=== PATIENT | female | born 1985 | race Caucasian/White ===

== ENCOUNTER 2018-10-26 10:03 | Inpatient (IN) | payer BC, MEDICAID ==
[2018-10-26] MEDS ORDERED: Lidocaine 1% 50 ML MDV INJECT PRN (11:58)
[2018-10-26] MEDS ORDERED: Sodium Chloride 0.9% 10 ML Syringe FLUSH PRN (11:58)
[2018-10-26] MEDS ORDERED: Tranexamic Acid 1,000 MG in Sodium Chloride 0.9% 100 ML IV PRN (11:58)
[2018-10-26] MEDS ORDERED: Methylergonovine 0.2 MG/1 ML Amp IM PRN (11:58)
[2018-10-26] MEDS ORDERED: Sodium Chloride 0.9% 2.5 ML Syringe FLUSH PRN (11:58)
[2018-10-26] MEDS ORDERED: Misoprostol 200 MCG Tab PO PRN (11:58)
[2018-10-26] MEDS ORDERED: Carboprost Tromethamine 250 MCG/1 ML Amp IM PRN (11:58)
[2018-10-26] MEDS ORDERED: Sodium Chloride 0.9% 10 ML SDV IV PRN (11:58)
[2018-10-26] MEDS ORDERED: Water For Irrigation,Sterile 1,000 ML Container IRR PRN (11:58)
[2018-10-26] MEDS ORDERED: Nalbuphine 10 MG/1 ML Vial IVPUSH PRN (11:58)
[2018-10-26] MEDS ORDERED: Oxytocin/0.9 % Sodium Chloride 30 UNIT/500 ML BAG IV SCH (12:00)
[2018-10-26] MEDS ORDERED: Ampicillin 2 GM in Sodium Chloride 0.9% 100 ML IV ONE (12:30)
[2018-10-26] MEDS: Lactated Ringers 1,000 ML IV SCH ×2 (12:45→15:07)
--- NOTE | 2018-10-26 12:57 | PCM.HP ---
<Olivier Gaxiolaher R - Last Filed: 10/26/18 12:52> H&P History of Present Illness - General Date of Service: 10/26/18 Admit Problem/Dx: Admission Diagnosis/Problem Admission Diagnosis/Problem Source of Information: Patient History Limitations: Reports: No Limitations - History of Present Illness Onset of Symptoms: Reports: Gradual Symptom Onset Date: 10/25/18 Location: Reports: Abdomen Severity: Moderate Associated Symptoms: Reports: No Other Symptoms - Related Data Allergies/Adverse Reactions: Allergies Allergy/AdvReac Type Severity Reaction Status Date / Time latex Allergy Itching Verified 10/24/18 14:48 Home Medications: Home Meds Vits96/Iron Fum/Folic [ Tablet] 1 each PO DAILY 10/24/18 [ History] H&P Review of Systems - Review of Systems: Review Of Systems: See Below General: Reports: No Symptoms HEENT: Reports: No Symptoms Pulmonary: Reports: No Symptoms Cardiovascular: Reports: No Symptoms Gastrointestinal: Reports: No Symptoms Genitourinary: Reports: No Symptoms Musculoskeletal: Reports: No Symptoms Skin: Reports: No Symptoms Psychiatric: Reports: No Symptoms Neurological: Reports: No Symptoms Hematologic/Lymphatic: Reports: No Symptoms Immunologic: Reports: No Symptoms Exam - Exam Exam: See Below - Exam General: Alert, Oriented, Cooperative Lungs: Normal Respiratory Effort GI/Abdominal Exam: Soft, Non-Tender Rectal (Female) Exam: Deferred Back Exam: Full Range of Motion Extremities: Normal Range of Motion, Normal Capillary Refill Skin: Warm, Dry, Intact Neurological: Reflexes Equal Bilateral Neuro Extensive - Mental Status: Alert, Oriented x3, Normal Mood/Affect, Normal Cognition, Memory Intact Neuro Extensive - Motor, Sensory, Reflexes: Normal Gait Psychiatric: Alert, Normal Affect, Normal Mood - Problem List (1) Supervision of normal IUP (intrauterine ) in primigravida SNOMED Code(s): 13042399, [id number], [id number], [id number] ICD Code: Z34.00 - ENCNTR FOR SUPRVSN OF NORMAL FIRST , UNSP TRIMESTER Status: Acute Priority: High Qualifiers: Trimester: third trimester Qualified Code(s): Z34.03 - Encounter for supervision of normal first , third trimester Problem List Initiated/Reviewed/Updated: Yes Orders Last 24hrs: Active Orders 24 hr Category Date Time Status Patient Status [ADT] Routine ADT 10/26/18 11:59 Active Heart Tones [RC] CONTINUOUS Care 10/26/18 11:59 Active Non Stress Test [RC] PER UNIT ROUTINE Care 10/26/18 10:10 Active May Shower [RC] ASDIRECTED Care 10/26/18 11:59 Active Notify Provider [RC] PRN Care 10/26/18 11:59 Active Up ad Sarahi [RC] ASDIRECTED Care 10/26/18 10:10 Active Vaginal Exam [RC] Click to Edit Care 10/26/18 10:10 Active Vital Signs [RC] PER UNIT ROUTINE Care 10/26/18 10:10 Active CBC W/O DIFF,HEMOGRAM [HEME] Routine Lab 10/26/18 12:40 Received TYPE AND SCREEN [BBK] Routine Lab 10/26/18 12:40 Received Ampicillin 1 gm Med 10/26/18 16:30 Active Sodium Chloride 0.9% [Normal Saline] 50 ml IV Q4H Ampicillin 2 gm Med 10/26/18 12:30 Active Sodium Chloride 0.9% [Normal Saline] 100 ml IV ONETIME Carboprost Tromethamine [Hemabate DS] Med 10/26/18 11:58 Active 250 mcg IM ASDIRECTED PRN Lactated Ringers [Ringers, Lactated] 1,000 ml Med 10/26/18 12:00 Active IV ASDIRECTED Lidocaine 1% [Xylocaine 1%] Med 10/26/18 11:58 Active 50 ml INJECT ONETIME PRN Methylergonovine [Methergine] Med 10/26/18 11:58 Active 0.2 mg IM ASDIRECTED PRN Nalbuphine [Nubain] Med 10/26/18 11:58 Active 10 mg IVPUSH Q1H PRN Oxytocin/0.9 % Sodium Chloride [Oxytocin 30 Unit/500 ML Med 10/26/18 12:00 Active -NS] 30 unit in 500 ml IV TITRATE Sodium Chloride 0.9% [Normal Saline] Med 10/26/18 11:58 Active 10 ml IV ASDIRECTED PRN Sodium Chloride 0.9% [Saline Flush] Med 10/26/18 11:58 Active 10 ml FLUSH ASDIRECTED PRN Sodium Chloride 0.9% [Saline Flush] Med 10/26/18 11:58 Active 2.5 ml FLUSH ASDIRECTED PRN Tranexamic Acid [Cyklokapron] 1,000 mg Med 10/26/18 11:58 Active Sodium Chloride 0.9% [Normal Saline] 100 ml IV ONETIME Water For Irrigation,Sterile [Sterile Water for Med 10/26/18 11:58 Active Irrigation] 1,000 ml IRR ASDIRECTED PRN miSOPROStol [Cytotec] Med 10/26/18 11:58 Active 200 mcg PO ONETIME PRN Scalp Electrode [WOMSER] Per Unit Routine Oth 10/26/18 11:59 Ordered Peripheral IV Insertion Adult [OM.PC] Routine Oth 10/26/18 11:59 Ordered Resuscitation Status Routine Resus Stat 10/26/18 11:56 Ordered Medication Orders Carboprost Tromethamine (Hemabate Ds) 250 mcg IM ASDIRECTED PRN PRN Reason: Post Hemorrhage Tranexamic Acid 1,000 mg/ (Sodium Chloride) 110 mls @ 660 mls/hr IV ONETIME PRN PRN Reason: Bleeding Lactated Ringer's (Ringers, Lactated) 1,000 mls @ 150 mls/hr IV ASDIRECTED [facility] Last Admin: 10/26/18 12:45 Dose: 150 mls/hr Oxytocin/Sodium Chloride (Oxytocin 30 Unit/500 Ml-Ns) 30 unit in 500 mls @ 999 mls/hr IV TITRATE [facility] Ampicillin Sodium 2 gm/ Sodium (Chloride) 100 mls @ 200 mls/hr IV ONETIME ONE Stop: 10/26/18 12:59 Last Admin: 10/26/18 12:48 Dose: 200 mls/hr Ampicillin Sodium 1 gm/ Sodium (Chloride) 50 mls @ 100 mls/hr IV Q4H [facility] Lidocaine HCl (Xylocaine 1%) 50 ml INJECT ONETIME PRN PRN Reason: Laceration repair Methylergonovine Maleate (Methergine) 0.2 mg IM ASDIRECTED PRN PRN Reason: Post Hemorrhage Misoprostol (Cytotec) 200 mcg PO ONETIME PRN PRN Reason: Post Hemorrhage Nalbuphine HCl (Nubain) 10 mg IVPUSH Q1H PRN PRN Reason: Pain (severe 7-10) Sodium Chloride (Saline Flush) 10 ml FLUSH ASDIRECTED PRN PRN Reason: Keep Vein Open Sodium Chloride (Saline Flush) 2.5 ml FLUSH ASDIRECTED PRN PRN Reason: Keep Vein Open Sodium Chloride (Normal Saline) 10 ml IV ASDIRECTED PRN PRN Reason: IV Use Sterile Water (Sterile Water For Irrigation) 1,000 ml IRR ASDIRECTED PRN PRN Reason: delivery Assessment/Plan Comment:: Admit: A: presenting at 38 1/7 weeks, SVE 3-4/100%/0, A+, RI, GBS+, VSS, regular uterine contractions q 3-5 minutes, cat 1 tracing, patient has multiple copies of her plan available P: Pain relief PRN per patient request, Anticipate JF, Dr. Lawson updated <Lisa Ken - Last Filed: 11/09/18 11:17> H&P History of Present Illness - General Admit Problem/Dx: Admission Diagnosis/Problem Admission Diagnosis/Problem Exam - Vital Signs Vital Signs: Last Vital Signs Temp 36.6 C 10/29/18 07:00 Pulse 86 10/29/18 07:00 Resp 16 10/29/18 07:00 BP 118/78 10/29/18 07:00 Pulse Ox 99 10/29/18 07:00 - Patient Data Result Diagrams: 10/28/18 05:03 Assessment/Plan Comment:: I have read and agree with the note and poc.
[2018-10-26] MEDS ORDERED: fentaNYL 100 MCG/2 ML SDV ONE (15:39)
[2018-10-26] MEDS ORDERED: Ropivacaine HCl/PF 100 ML ONE (15:39)
--- NOTE | 2018-10-26 15:58 | PCM.PREANE ---
Preanesthetic Assessment - Anesthesia/Transfusion/Family Hx Anesthesia History: No Prior Anesthesia Family History of Anesthesia Reaction: No - Review of Systems General: No Symptoms Pulmonary: No Symptoms Cardiovascular: No Symptoms Gastrointestinal: No Symptoms Neurological: No Symptoms - Physical Assessment ASA Class: 1 Mental Status: Alert & Oriented x3 Dentition: Reports: Normal Dentition - Lab Values: Laboratory Last Values WBC 19.30 K/uL (4.0-11.0) H 10/26/18 12:40 RBC 3.70 M/uL (4.30-5.90) L 10/26/18 12:40 Hgb 10.5 g/dL (12.0-16.0) L 10/26/18 12:40 Hct 31.3 % (36.0-46.0) L 10/26/18 12:40 MCV 84.6 fL (80.0-98.0) 10/26/18 12:40 MCH 28.4 pg (27.0-32.0) 10/26/18 12:40 MCHC 33.5 g/dL (31.0-37.0) 10/26/18 12:40 RDW Std Deviation 42.1 fl (28.0-62.0) 10/26/18 12:40 RDW Coeff of Lorna 14 % (11.0-15.0) 10/26/18 12:40 Plt Count 214 K/uL (150-400) 10/26/18 12:40 MPV 11.60 fL (7.40-12.00) 10/26/18 12:40 Nucleated RBC % 0.0 /100WBC 10/26/18 12:40 Nucleated RBCs # 0 K/uL 10/26/18 12:40 Blood Type A POSITIVE 10/26/18 12:40 Antibody Screen NEGATIVE 10/26/18 12:40 - Allergies Allergies/Adverse Reactions: Allergies Allergy/AdvReac Type Severity Reaction Status Date / Time latex Allergy Itching Verified 10/24/18 14:48 - Acknowledgements Anesthesia Type Planned: Epidural Pt an Appropriate Candidate for the Planned Anesthesia: Yes Alternatives and Risks of Anesthesia Discussed w Pt/Guardian: Yes Pt/Guardian Understands and Agrees with Anesthesia Plan: Yes PreAnesthesia Questionnaire - HOME MEDS Home Medications: Home Meds Vits96/Iron Fum/Folic [ Tablet] 1 each PO DAILY 10/24/18 [ History] - CURRENT (IN HOUSE) MEDS Current Meds: Current Medications Carboprost Tromethamine (Hemabate Ds) 250 mcg IM ASDIRECTED PRN PRN Reason: Post Hemorrhage Tranexamic Acid 1,000 mg/ (Sodium Chloride) 110 mls @ 660 mls/hr IV ONETIME PRN PRN Reason: Bleeding Lactated Ringer's (Ringers, Lactated) 1,000 mls @ 150 mls/hr IV ASDIRECTED [facility] Last Admin: 10/26/18 15:07 Dose: 999 mls/hr Oxytocin/Sodium Chloride (Oxytocin 30 Unit/500 Ml-Ns) 30 unit in 500 mls @ 999 mls/hr IV TITRATE [facility] Ampicillin Sodium 1 gm/ Sodium (Chloride) 50 mls @ 100 mls/hr IV Q4H [facility] Lidocaine HCl (Xylocaine 1%) 50 ml INJECT ONETIME PRN PRN Reason: Laceration repair Methylergonovine Maleate (Methergine) 0.2 mg IM ASDIRECTED PRN PRN Reason: Post Hemorrhage Misoprostol (Cytotec) 200 mcg PO ONETIME PRN PRN Reason: Post Hemorrhage Nalbuphine HCl (Nubain) 10 mg IVPUSH Q1H PRN PRN Reason: Pain (severe 7-10) Last Admin: 10/26/18 13:40 Dose: 10 mg Sodium Chloride (Saline Flush) 10 ml FLUSH ASDIRECTED PRN PRN Reason: Keep Vein Open Sodium Chloride (Saline Flush) 2.5 ml FLUSH ASDIRECTED PRN PRN Reason: Keep Vein Open Sodium Chloride (Normal Saline) 10 ml IV ASDIRECTED PRN PRN Reason: IV Use Sterile Water (Sterile Water For Irrigation) 1,000 ml IRR ASDIRECTED PRN PRN Reason: delivery Discontinued Medications Fentanyl (Sublimaze) Confirm Administered Dose 100 mcg .ROUTE .STK-MED ONE Stop: 10/26/18 15:40 Ampicillin Sodium 2 gm/ Sodium (Chloride) 100 mls @ 200 mls/hr IV ONETIME ONE Stop: 10/26/18 12:59 Last Admin: 10/26/18 12:48 Dose: 200 mls/hr Ropivacaine (Naropin 0.2%) Confirm Administered Dose 100 mls @ as directed .ROUTE .STK-MED ONE Stop: 10/26/18 15:40
--- NOTE | 2018-10-26 16:02 | PCM.PRNOTE ---
- Free Text/Narrative Note: Anes Note 1542 Patient requests epidural for L&D. Sitting position. Level L2-L3, midline approach. Sterle technique. Chloraprep scrube to lumbar area.Sterile fenestrated drape applied. Epidural space easily achieved single attempt with ease. YANIRA at 5 cm, cathreaded 4 cm. Secured at skin at 9 cm..Sterile clear adhseive dressing applied. 1551 Test 3 cc 1.5% lido ith epi neg. Loading does 1554 10 cc 0.2 ropivicaine with 1 mcg/cc fentanyl in slow divided doses. 1600 pump started. same solution at 8 cc hr with 6 cc q 20 min prn blous. Patient reports excellent analgesia Time with patient [id number] Nitesh Frederick SPLUNK CONSULTANT
[2018-10-26] MEDS: Ampicillin 1 GM in Sodium Chloride 0.9% 50 ML IV SCH ×2 (16:44→21:17)
[2018-10-27] MEDS ORDERED: Ondansetron 4 MG/2 ML SDV ONE (00:01)
[2018-10-27] MEDS ORDERED: Ropivacaine HCl/PF 100 ML ONE (00:11)
[2018-10-27] MEDS ORDERED: fentaNYL 100 MCG/2 ML SDV ONE (00:11)
[2018-10-27] MEDS: Ampicillin 1 GM in Sodium Chloride 0.9% 50 ML IV SCH (00:13)
[2018-10-27] MEDS: Lactated Ringers 1,000 ML IV SCH (00:14)
[2018-10-27] MEDS ORDERED: Bupivacaine 0.5% 10 ML SDV ONE (00:21)
--- NOTE | 2018-10-27 00:27 | PCM.PRNOTE ---
- Free Text/Narrative Note: Anes Note Epidural bag changed. A new bag of 100 cc 0.2% ropivicaine with 1 mcg/cc fentanyl added was placed. Rate is 8 cc/hr with 6 cc q 20 min prn bolus. A 5 cc top up of 0.25% bupivicaine was given forslight discomfort in r hip area. Time with patient [id number] Nitesh Frederick CRNA
[2018-10-27] MEDS ORDERED: Benzocaine/Menthol 20%-0.5% Spray 78 GM Cannister TOP PRN (01:32)
[2018-10-27] MEDS ORDERED: oxyCODONE 5 MG Tab PO PRN (01:32)
[2018-10-27] MEDS ORDERED: Acetaminophen 500 MG Tab PO PRN ×2 (01:32)
[2018-10-27] MEDS ORDERED: Lanolin 100% Cream 7 GM Tube TOP PRN (01:32)
[2018-10-27] MEDS ORDERED: Bisacodyl 10 MG Supp RECTAL PRN (01:32)
[2018-10-27] MEDS ORDERED: Witch Hazel Medicated Pads 40/Jar TOP PRN (01:32)
[2018-10-27] MEDS ORDERED: Ibuprofen 400 MG Tab PO PRN (01:32)
--- NOTE | 2018-10-27 04:02 | OR ---
SURGEON: Zachary Lawson MD DATE OF PROCEDURE: Ms. Shabazz is 33 years old primigravida. She is followed in our clinic jointly by myself and nurse cmm operator. The patient had no complication. Her GBS status was positive. The patient is admitted in active labor. At the time of admission, she was 3 to 4 cm with bulging bag of water. She had 2 doses of antibiotic infused in her body and then at 5 cm, I did an artificial rupture of the membrane and light meconium is noted at the time of the rupture. The patient had epidural anesthesia for labor analgesia. She has continued to progress without any problem, without any stimulation. She became complete, complete, and she was able to accomplish normal spontaneous vaginal delivery over intact perineum. Fetus cried immediately. score reported to be 8 and 9. The weight is not available. The placenta delivered spontaneous, complete, and intact without any problem. One nuchal cord is noted and estimated blood loss is 250 to 300 mL. There was no labial, perineal, or vaginal laceration. heart rate was category 1 through the entire process of labor. There was no complication in the labor and in this patient. MILAN / HEATHER /[id number]
[2018-10-27] MEDS: Docusate Sodium 100 MG Cap PO PRN (07:44)
[2018-10-27] MEDS: Ibuprofen 800 MG Tab PO PRN ×3 (07:44→22:12)
--- NOTE | 2018-10-27 08:33 | PCM48HPAN ---
Post Anesthesia Note - EVALUATION WITHIN 48HRS OF ANESTHETIC Vital Signs in Normal Range: Yes Patient Participated in Evaluation: Yes Respiratory Function Stable: Yes Airway Patent: Yes Cardiovascular Function Stable: Yes Hydration Status Stable: Yes Pain Control Satisfactory: Yes Nausea and Vomiting Control Satisfactory: Yes Mental Status Recovered: Yes Pulse Rate: 92 SaO2: 96 Resp Rate: 16 Blood Pressure: 109/71
--- NOTE | 2018-10-28 10:21 | PCM.DCSUM1 ---
Discharge Summary - Hospital Course Diagnosis: Stroke: No - Discharge Data Discharge Date: 10/28/18 Discharge Disposition: Home, Self-Care 01 Condition: Good - Patient Instructions Diet: Usual Diet as Tolerated Activity: As Tolerated Showering/Bathing: May Shower - Discharge Plan Home Medications: Home Meds Vits96/Iron Fum/Folic [ Tablet] 1 each PO DAILY 10/24/18 [ History] Referrals: [facility] [Outside] Lisa Ken CNM [Mid-] - 12/07/18 8:30 am - Discharge Summary/Plan Comment DC Time >30 min.: Yes - General Info Date of Service: 10/28/18 Functional Status: Reports: Pain Controlled - Review of Systems General: Reports: No Symptoms HEENT: Reports: No Symptoms Pulmonary: Reports: No Symptoms Cardiovascular: Reports: No Symptoms Gastrointestinal: Reports: No Symptoms Genitourinary: Reports: No Symptoms Musculoskeletal: Reports: No Symptoms Skin: Reports: No Symptoms Neurological: Reports: No Symptoms Psychiatric: Reports: No Symptoms - Patient Data Vitals - Most Recent: Last Vital Signs Temp 37.2 C 10/28/18 07:29 Pulse 76 10/28/18 07:29 Resp 16 10/28/18 07:29 BP 98/62 10/28/18 07:29 Pulse Ox 99 10/28/18 07:29 Weight - Most Recent: 61.235 kg Lab Results - Last 24 hrs: Laboratory Results - last 24 hr 10/28/18 Range/Units 05:03 Hgb 9.2 L (12.0-16.0) g/dL Hct 28.4 L (36.0-46.0) % Med Orders - Current: Current Medications Acetaminophen (Tylenol Extra Strength) 500 mg PO Q4H PRN PRN Reason: Pain Acetaminophen (Tylenol Extra Strength) 1,000 mg PO Q4H PRN PRN Reason: Pain Benzocaine/Menthol (Dermoplast Pain Relief 20%-0.5% [place]) 78 gm TOP ASDIRECTED PRN PRN Reason: Perineal Comfort Measure Bisacodyl (Dulcolax) 10 mg RECTAL ONETIME PRN PRN Reason: Constipation Carboprost Tromethamine (Hemabate Ds) 250 mcg IM ASDIRECTED PRN PRN Reason: Post Hemorrhage Docusate Sodium (Colace) 100 mg PO BID PRN PRN Reason: Constipation Last Admin: 10/27/18 07:44 Dose: 100 mg Emollient Ointment (Lansinoh Hpa) 0 gm TOP ASDIRECTED PRN PRN Reason: Sore Nipples Last Admin: 10/27/18 20:02 Dose: 1 tube Tranexamic Acid 1,000 mg/ (Sodium Chloride) 110 mls @ 660 mls/hr IV ONETIME PRN PRN Reason: Bleeding Lactated Ringer's (Ringers, Lactated) 1,000 mls @ 150 mls/hr IV ASDIRECTED [facility] Last Admin: 10/27/18 00:14 Dose: 150 mls/hr Oxytocin/Sodium Chloride (Oxytocin 30 Unit/500 Ml-Ns) 30 unit in 500 mls @ 999 mls/hr IV TITRATE [facility] Ampicillin Sodium 1 gm/ Sodium (Chloride) 50 mls @ 100 mls/hr IV Q4H [facility] Last Admin: 10/27/18 00:13 Dose: 100 mls/hr Ibuprofen (Motrin) 400 mg PO Q4H PRN PRN Reason: Pain Ibuprofen (Motrin) 800 mg PO Q6H PRN PRN Reason: Pain Last Admin: 10/27/18 22:12 Dose: 800 mg Lidocaine HCl (Xylocaine 1%) 50 ml INJECT ONETIME PRN PRN Reason: Laceration repair Methylergonovine Maleate (Methergine) 0.2 mg IM ASDIRECTED PRN PRN Reason: Post Hemorrhage Misoprostol (Cytotec) 200 mcg PO ONETIME PRN PRN Reason: Post Hemorrhage Nalbuphine HCl (Nubain) 10 mg IVPUSH Q1H PRN PRN Reason: Pain (severe 7-10) Last Admin: 10/26/18 13:40 Dose: 10 mg Oxycodone HCl (Oxycodone) 5 mg PO Q2H PRN PRN Reason: Pain Sodium Chloride (Saline Flush) 10 ml FLUSH ASDIRECTED PRN PRN Reason: Keep Vein Open Sodium Chloride (Saline Flush) 2.5 ml FLUSH ASDIRECTED PRN PRN Reason: Keep Vein Open Sodium Chloride (Normal Saline) 10 ml IV ASDIRECTED PRN PRN Reason: IV Use Sterile Water (Sterile Water For Irrigation) 1,000 ml IRR ASDIRECTED PRN PRN Reason: delivery Witch Constance (Tucks) 1 pad TOP ASDIRECTED PRN PRN Reason: comfort care Discontinued Medications Bupivacaine HCl (Sensorcaine-Mpf 0.5%) Confirm Administered Dose 10 ml .ROUTE .STK-MED ONE Stop: 10/27/18 00:22 Fentanyl (Sublimaze) Confirm Administered Dose 100 mcg .ROUTE .STK-MED ONE Stop: 10/26/18 15:40 Fentanyl (Sublimaze) Confirm Administered Dose 100 mcg .ROUTE .STK-MED ONE Stop: 10/27/18 00:12 Ampicillin Sodium 2 gm/ Sodium (Chloride) 100 mls @ 200 mls/hr IV ONETIME ONE Stop: 10/26/18 12:59 Last Admin: 10/26/18 12:48 Dose: 200 mls/hr Ropivacaine (Naropin 0.2%) Confirm Administered Dose 100 mls @ as directed .ROUTE .STK-MED ONE Stop: 10/26/18 15:40 Ropivacaine (Naropin 0.2%) Confirm Administered Dose 100 mls @ as directed .ROUTE .STK-MED ONE Stop: 10/27/18 00:12 Ondansetron HCl (Zofran) Confirm Administered Dose 4 mg .ROUTE .STK-MED ONE Stop: 10/27/18 00:02 Last Admin: 10/27/18 00:14 Dose: 4 mg - Exam General: Reports: Alert, Oriented HEENT: Reports: Pupils Equal, Pupils Reactive, EOMI, Mucous Membr. Moist/[place] Neck: Reports: Supple Lungs: Reports: Clear to Auscultation, Normal Respiratory Effort Cardiovascular: Reports: Regular Rate, Regular Rhythm GI/Abdominal Exam: Normal Bowel Sounds, Soft, Non-Tender, No Organomegaly, No Distention, No Abnormal Bruit, No Mass, Pelvis Stable (Female) Exam: Normal External Exam, Normal Speculum Exam, Normal Bimanual Exam Rectal (Female) Exam: Normal Exam, Normal Rectal Tone Back Exam: Reports: Normal Inspection, Full Range of Motion Extremities: Normal Inspection, Normal Range of Motion, Non-Tender, No Pedal Edema, Normal Capillary Refill Skin: Reports: Warm, Dry, Intact Wound/Incisions: Reports: Healing Well Neurological: Reports: No New Focal Deficit Psy/Mental Status: Reports: Alert, Normal Affect, Normal Mood
[2018-10-28] MEDS: Docusate Sodium 100 MG Cap PO PRN (12:55)
[2018-10-28] MEDS: Ibuprofen 800 MG Tab PO PRN ×2 (12:55→23:10)
--- NOTE | 2018-10-29 09:37 | PCM.PNPP ---
- General Info Date of Service: 10/29/18 Functional Status: Reports: Pain Controlled, Tolerating Diet, Ambulating, Urinating - Review of Systems General: Denies: Fever, Weakness, Fatigue Pulmonary: Denies: Shortness of Breath Cardiovascular: Denies: Chest Pain, Palpitations, Lightheadedness Gastrointestinal: Reports: Flatus. Denies: Abdominal Pain, Nausea, Vomiting Genitourinary: Denies: Flank Pain Musculoskeletal: Reports: No Symptoms Skin: Reports: No Symptoms Neurological: Reports: No Symptoms Psychiatric: Reports: No Symptoms - General Info Date of Service: 10/29/18 - Patient Data Vital Signs - Most Recent: Last Vital Signs Temp 36.6 C 10/29/18 07:00 Pulse 86 10/29/18 07:00 Resp 16 10/29/18 07:00 BP 118/78 10/29/18 07:00 Pulse Ox 99 10/29/18 07:00 Weight - Most Recent: 61.235 kg Med Orders - Current: Current Medications Acetaminophen (Tylenol Extra Strength) 500 mg PO Q4H PRN PRN Reason: Pain Acetaminophen (Tylenol Extra Strength) 1,000 mg PO Q4H PRN PRN Reason: Pain Last Admin: 10/29/18 07:58 Dose: 1,000 mg Benzocaine/Menthol (Dermoplast Pain Relief 20%-0.5% [place]) 78 gm TOP ASDIRECTED PRN PRN Reason: Perineal Comfort Measure Last Admin: 10/28/18 12:56 Dose: 1 spray Bisacodyl (Dulcolax) 10 mg RECTAL ONETIME PRN PRN Reason: Constipation Carboprost Tromethamine (Hemabate Ds) 250 mcg IM ASDIRECTED PRN PRN Reason: Post Hemorrhage Docusate Sodium (Colace) 100 mg PO BID PRN PRN Reason: Constipation Last Admin: 10/28/18 12:55 Dose: 100 mg Emollient Ointment (Lansinoh Hpa) 0 gm TOP ASDIRECTED PRN PRN Reason: Sore Nipples Last Admin: 10/27/18 20:02 Dose: 1 tube Tranexamic Acid 1,000 mg/ (Sodium Chloride) 110 mls @ 660 mls/hr IV ONETIME PRN PRN Reason: Bleeding Lactated Ringer's (Ringers, Lactated) 1,000 mls @ 150 mls/hr IV ASDIRECTED [facility] Last Admin: 10/27/18 00:14 Dose: 150 mls/hr Oxytocin/Sodium Chloride (Oxytocin 30 Unit/500 Ml-Ns) 30 unit in 500 mls @ 999 mls/hr IV TITRATE [facility] Ampicillin Sodium 1 gm/ Sodium (Chloride) 50 mls @ 100 mls/hr IV Q4H [facility] Last Admin: 10/27/18 00:13 Dose: 100 mls/hr Ibuprofen (Motrin) 400 mg PO Q4H PRN PRN Reason: Pain Ibuprofen (Motrin) 800 mg PO Q6H PRN PRN Reason: Pain Last Admin: 10/28/18 23:10 Dose: 800 mg Lidocaine HCl (Xylocaine 1%) 50 ml INJECT ONETIME PRN PRN Reason: Laceration repair Methylergonovine Maleate (Methergine) 0.2 mg IM ASDIRECTED PRN PRN Reason: Post Hemorrhage Misoprostol (Cytotec) 200 mcg PO ONETIME PRN PRN Reason: Post Hemorrhage Nalbuphine HCl (Nubain) 10 mg IVPUSH Q1H PRN PRN Reason: Pain (severe 7-10) Last Admin: 10/26/18 13:40 Dose: 10 mg Oxycodone HCl (Oxycodone) 5 mg PO Q2H PRN PRN Reason: Pain Sodium Chloride (Saline Flush) 10 ml FLUSH ASDIRECTED PRN PRN Reason: Keep Vein Open Sodium Chloride (Saline Flush) 2.5 ml FLUSH ASDIRECTED PRN PRN Reason: Keep Vein Open Sodium Chloride (Normal Saline) 10 ml IV ASDIRECTED PRN PRN Reason: IV Use Sterile Water (Sterile Water For Irrigation) 1,000 ml IRR ASDIRECTED PRN PRN Reason: delivery Tl [place] (Tucks) 1 pad TOP ASDIRECTED PRN PRN Reason: comfort care Last Admin: 10/28/18 12:56 Dose: 1 pad Discontinued Medications Bupivacaine HCl (Sensorcaine-Mpf 0.5%) Confirm Administered Dose 10 ml .ROUTE .STK-MED ONE Stop: 10/27/18 00:22 Fentanyl (Sublimaze) Confirm Administered Dose 100 mcg .ROUTE .STK-MED ONE Stop: 10/26/18 15:40 Fentanyl (Sublimaze) Confirm Administered Dose 100 mcg .ROUTE .STK-MED ONE Stop: 10/27/18 00:12 Ampicillin Sodium 2 gm/ Sodium (Chloride) 100 mls @ 200 mls/hr IV ONETIME ONE Stop: 10/26/18 12:59 Last Admin: 10/26/18 12:48 Dose: 200 mls/hr Ropivacaine (Naropin 0.2%) Confirm Administered Dose 100 mls @ as directed .ROUTE .STK-MED ONE Stop: 10/26/18 15:40 Ropivacaine (Naropin 0.2%) Confirm Administered Dose 100 mls @ as directed .ROUTE .STK-MED ONE Stop: 10/27/18 00:12 Ondansetron HCl (Zofran) Confirm Administered Dose 4 mg .ROUTE .STK-MED ONE Stop: 10/27/18 00:02 Last Admin: 10/27/18 00:14 Dose: 4 mg - Infant Interaction Support Person: Mother - Recovery Exam Fundal Tone: Firm Fundal Level: 1 Fingerbreadths Below Umbilicus Fundal Placement: Midline Lochia Amount: Scant Lochia Color: Rubra/Red Perineum Description: Intact, Minimal Bruising/Swelling Episiotomy/Laceration: None Bladder Status: Nonpalpable, Voiding Urinary Elimination: Voided - Exam General: Alert, Oriented Lungs: Normal Respiratory Effort Cardiovascular: Regular Rate, Regular Rhythm GI/Abdominal Exam: Normal Bowel Sounds, Soft Extremities: Pedal Edema (trace). No: Leslie's Sign Skin: Warm, Dry, Intact Neurological: No New Focal Deficit Psy/Mental Status: Alert, Normal Affect, Normal Mood - Problem List Review Problem List Initiated/Reviewed/Updated: Yes - Assessment Assessment:: PPD 2 status post - Plan Plan:: Patient feeling well overall--ready to go home and baby is to be discharged as well. Discharge instructions reviewed. Follow up at [facility] women's clinic 6 weeks. Infection and bleeding warnings reviewed. Discharge to home today.
== END 2018-10-29 11:50 | disposition home or self-care (01) | DRG 560 ==
LOC: MW.OBCHECK 10:03 → MW.OB 10:04 → MW.OBCHECK 11:57 → MW.OB 11:58 → OBSVTOIN 10-27 01:25 → INTOOBSV 10-27 01:32 → OBSVTOIN 10-27 01:32 → MW.OB 10-27 01:32
PROVIDERS: ADMIT Obstetrics & Gynecology; ATTEND Obstetrics & Gynecology
PROC: 10E0XZZ Delivery of Products of Conception, External Approach (ICD-10-PCS; principal; 2018-10-27)
PROC: 10907ZC Drainage of Amniotic Fluid, Therapeutic from Products of Conception, Via Natural or Artificial Opening (ICD-10-PCS; 2018-10-27)
PROC: 3E0R3BZ Introduction of Anesthetic Agent into Spinal Canal, Percutaneous Approach (ICD-10-PCS; 2018-10-27)
PROC: 00HU33Z Insertion of Infusion Device into Spinal Canal, Percutaneous Approach (ICD-10-PCS; 2018-10-27)
DX: O99.824 Streptococcus B carrier state complicating childbirth (principal); Z3A.38 38 weeks gestation of pregnancy; Z37.0 Single live birth; O77.0 Labor and delivery complicated by meconium in amniotic fluid
CPT/HCPCS: 01967; 36415; 51702; 59025; 59409; 85014; 85018; 85027; 86850; 86900; 86901; A9270-GY; J0290; J2300; J2405; J7030; J7050; J7120

== ENCOUNTER 2020-02-16 17:41 | Emergency (ER) | payer BC ==
--- NOTE | 2020-02-16 18:08 | EDM.PDOC ---
ED HPI GENERAL MEDICAL PROBLEM - General Stated Complaint: RT ANKLE INJURY Time Seen by Provider: 02/16/20 17:44 Source of Information: Reports: Patient History Limitations: Reports: No Limitations - History of Present Illness INITIAL COMMENTS - FREE TEXT/NARRATIVE: HISTORY AND PHYSICAL: History of present illness: Patient is a 34-year-old female who presents to the emergency room with complaints of a right lateral ankle injury. [place] [employer] [place] resulting in her rolling her ankle. She heard a "pop" and has tissue swelling and pain with touch and weightbearing. She denies any numbness, tingling, saddle paresthesia. She denies hitting her head or having any loss of consciousness. She has no other extremity involvement. Offers no systemic complaints. Review of systems: As per history of present illness and below otherwise all systems reviewed and negative. Past medical history: As per history of present illness and as reviewed below otherwise noncontributory. Surgical history: As per history of present illness and as reviewed below otherwise noncontributory. Social history: See social history for further information Family history: As per history of present illness and as reviewed below otherwise noncontributory. Physical exam: General: Well developed and well nourished. Alert and orientated x 3. Nontoxic in appearance and in no acute distress. Vital signs are stable and have been reviewed by me. Nursing notes were reviewed. HEENT: Atraumatic, normocephalic, pupils equal and reactive bilaterally, negative for conjunctival pallor or scleral icterus, mucous membranes moist, TMs normal bilaterally, throat clear, neck supple, nontender, trachea midline. No drooling or trismus noted. No meningeal signs. No hot potato voice noted. Lungs: Clear to auscultation, breath sounds equal bilaterally, chest nontender. Normal work of breathing, no accessory muscles used. Heart: S1S2, regular rate and rhythm without overt murmur Abdomen: Soft, nondistended, nontender. Skin: Soft tissue swelling is noted to the right lateral ankle. Intact, warm, dry. No lesions or rashes noted. Hematologic: No petechiae or purpra. Mucosa appropriate color and normal nail bed color and refill. Extremities: Soft tissue swelling noted over the right lateral malleolus with tenderness to palpation. Good flexion and extension of the ankle although this does cause some discomfort. Strong pedal and pretibial pulse. Cap refill less than 3 seconds. Good sensation. Otherwise she moves all other extremities per self without difficulty or deficits, negative for cords or calf pain. Neurovascular unremarkable. Neuro: Awake, alert, oriented. Cranial nerves II through XII unremarkable. Cerebellum unremarkable. Motor and sensory unremarkable throughout. Exam nonfocal. Psychiatric: Mood and affect are appropriate. Normal thought process. Answering questions appropriately. Notes: X-ray shows no acute fractures. There is lateral ankle edema. Stirrup air splint and crutches for right ankle sprain. Wear for the next 3-5 days or until follow up with orthopedics. I have talked with the patient about today's findings, in addition to providing specific details for plan of care. Reassessment at the time of disposition demonstrates that the patient is in no acute distress. The patient is stable for discharge, counseling was provided and we discussed in great detail signs and symptoms that would prompt them to return to the Emergency Department. Medication, follow up and supportive care measures were reviewed and discussed. Voices understanding and is agreeable to plan of care. Denies any further questions or concerns at this time. Diagnostics: X-ray Therapeutics: Edmeston, stirrup splint, crutches Prescription: Edmeston (#20) Impression: Ankle sprain, right Plan: 1. X-ray shows no fracture, but moderate soft tissue swelling is noted. Please rest, ice, elevate the affected extremity. Please wear the splint as directed. 2. Tylenol and/or Ibuprofen as needed for pain management. Edmeston for moderate to severe pain. This medication may cause drowsiness so do not take it while driving or needing to be functioning outside of the house. 3. Follow up with the Orthopedic provider as we discussed. Return to the ED as needed and as discussed. Definitive disposition and diagnosis as appropriate pending reevaluation and review of above. right ankle Pain Score (Numeric/FACES): 7 - Related Data Allergies Allergy/AdvReac Type Severity Reaction Status Date / Time latex Allergy Itching Verified 02/16/20 18:09 Home Meds: Home Meds . [No Known Home Meds] 02/16/20 [History] Past Medical History - Past Health History Medical/Surgical History: Denies Medical/Surgical History [employer] History: Reports: Social & Family History - Caffeine Use Caffeine Use: Reports: None Review of Systems - Review of Systems Review Of Systems: Comprehensive ROS is negative, except as noted in HPI. ED EXAM, GENERAL - Physical Exam Exam: See Below (See dictation) Course - Vital Signs Last Recorded V/S: Last Vital Signs Temp 97.2 F 02/16/20 18:05 Pulse 98 02/16/20 18:05 Resp 16 02/16/20 18:05 BP 153/89 H 02/16/20 18:05 Pulse Ox 100 02/16/20 18:05 - Orders/Labs/Meds Orders: Active Orders 24 hr Category Date Time Status DME for Discharge [COMM] Stat Oth 02/16/20 18:50 Ordered Meds: Medications Discontinued Medications Generic Name Dose Route Start Last Admin Trade Name Triston PRN Reason Stop Dose Admin Hydrocodone Bitart/Acetaminophen 1 tab 02/16/20 18:50 Edmeston 325-5 Mg PO 02/16/20 18:51 ONETIME ONE Departure - Departure Time of Disposition: 18:54 Disposition: Home, Self-Care 01 Clinical Impression: Right ankle sprain Qualifiers: Encounter type: initial encounter Involved ligament of ankle: unspecified ligament Qualified Code(s): S93.401A - Sprain of unspecified ligament of right ankle, initial encounter - Discharge Information Instructions: Ankle Sprain, [id number] Referrals: PCP,None [Primary Care Provider] - Additional Instructions: The following information is given to patients seen in the emergency department who are being discharged to home. This information is to outline your options for follow-up care. We provide all patients seen in our emergency department with a follow-up referral. The need for follow-up, as well as the timing and circumstances, are variable depending upon the specifics of your emergency department visit. If you don't have a primary care physician on staff, we will provide you with a referral. We always advise you to contact your personal physician following an emergency department visit to inform them of the circumstance of the visit and for follow-up with them and/or the need for any referrals to a consulting specialist. The emergency department will also refer you to a specialist when appropriate. This referral assures that you have the opportunity for follow-up care with a specialist. All of these measure are taken in an effort to provide you with optimal care, which includes your follow-up. Under all circumstances we always encourage you to contact your private physi aurelio who remains a resource for coordinating your care. When calling for follow- up care, please make the office aware that this follow-up is from your recent emergency room visit. If for any reason you are refused follow-up, please contact the [facility] Emergency Department at and asked to speak to the emergency department charge nurse. [facility] [address], [place] [address] [facility] [address] [place] [address] Thank you for choosing the [facility] emergency department in [place] for your medical needs today. It was a pleasure caring for you. Today you were seen in the emergency department for ankle injury. 1. X-ray shows no fracture, but moderate soft tissue swelling is noted. Please rest, ice, elevate the affected extremity. Please wear the splint as directed. 2. Tylenol and/or Ibuprofen as needed for pain management. Edmeston for moderate to severe pain. This medication may cause drowsiness so do not take it while driving or needing to be functioning outside of the house. 3. Follow up with the Orthopedic provider as we discussed. Return to the ED as needed and as discussed. Sepsis Event Note (ED) - Focused Exam Vital Signs: Vital Signs Temp Pulse Resp BP Pulse Ox 02/16/20 18:05 97.2 F 98 16 153/89 H 100 - My Orders Last 24 Hours: My Active Orders 02/16/20 18:50 DME for Discharge [COMM] Stat - Assessment/Plan Last 24 Hours: My Active Orders 02/16/20 18:50 DME for Discharge [COMM] Stat
[2020-02-16] MEDS ORDERED: Acetaminophen/HYDROcodone 325-5 MG Tab PO ONE (18:50)
--- NOTE | 2020-02-16 18:51 | CR ---
INDICATION: Pain following trauma TECHNIQUE: Three views right ankle COMPARISON: None FINDINGS: Bones: Alignment is normal. No fractures or bone lesions. Joint spaces: Unremarkable. Soft tissues: Lateral ankle edema. IMPRESSION: Lateral ankle edema. Dictated by Jaden Laura MD @ Feb 16 2020 6:51PM Signed by Dr. Jaden Laura @ Feb 16 2020 6:51PM
== END 2020-02-16 19:40 | disposition home or self-care (01) ==
LOC: MW.ED 17:41
DX: S93.401A Sprain of unspecified ligament of right ankle, initial encounter (principal); Z91.040 Latex allergy status; X50.1XXA Overexertion from prolonged static or awkward postures, initial encounter; Y93.39 Activity, other involving climbing, rappelling and jumping off; Y92.29 Other specified public building as the place of occurrence of the external cause
CPT/HCPCS: 73610-26-RT; 73610-RT; 99283

== ENCOUNTER 2023-09-06 08:16 | Inpatient (IN) | payer BC ==
[2023-09-06] MEDS ORDERED: Tranexamic Acid IN NACL,ISO-OS 1,000 MG in Premix Bag 1 BAG IV PRN ×2 (08:46→22:23)
[2023-09-06] MEDS ORDERED: Ondansetron 4 MG/2 ML SDV IVPUSH PRN (08:46)
[2023-09-06] MEDS ORDERED: Lidocaine 1% 50 ML MDV INJECT PRN (08:46)
[2023-09-06] MEDS ORDERED: Terbutaline 1 MG/ML SDV SUBCUT PRN (08:46)
[2023-09-06] MEDS ORDERED: Carboprost Tromethamine 250 MCG/1 mL Vial IM PRN (08:46)
[2023-09-06] MEDS ORDERED: Sodium Chloride 0.9% 20 ML SDV IV PRN (08:46)
[2023-09-06] MEDS ORDERED: Sodium Chloride 0.9% 10 ML Syringe FLUSH PRN (08:46)
[2023-09-06] MEDS ORDERED: Water For Irrigation,Sterile 1,000 ML Container IRR PRN (08:46)
[2023-09-06] MEDS ORDERED: Methylergonovine 0.2 MG/1 ML Amp IM PRN ×2 (08:46→22:23)
[2023-09-06] MEDS ORDERED: Misoprostol 200 MCG Tab PO PRN ×2 (08:46→22:23)
[2023-09-06] MEDS ORDERED: Sodium Chloride 0.9% 2.5 ML Syringe FLUSH PRN (08:46)
[2023-09-06] MEDS ORDERED: Oxytocin/0.9 % Sodium Chloride 30 UNIT/500 ML BAG IV SCH (09:00)
[2023-09-06] MEDS: Ampicillin 2 GM in Sodium Chloride 0.9% 100 ML IV ONE (09:06)
[2023-09-06] MEDS: Lactated Ringers 1,000 ML IV SCH (09:11)
[2023-09-06 09:31] LABS: HEMATOCRIT 33.7 % (37.0-47.0); HEMOGLOBIN 11.5 g/dL (12.0-16.0); MEAN CORPUSCULAR HEMOGLOBIN 30.9 pg (28.0-32.0); MEAN CORPUSCULAR HGB CONC 34.1 g/dL (32.0-36.0); MEAN CORPUSCULAR VOLUME 90.6 fL (83.0-99.0); MEAN PLATELET VOLUME 11.8 fL (9.4-12.3); PLATELET COUNT,PLT 286 K/uL (150-400); RED BLOOD CELL COUNT 3.72 M/uL (4.10-5.30); WHITE BLOOD CELL COUNT,WBC 15.69 K/uL (3.9-11.3)
[2023-09-06] MEDS: Misoprostol 25 MCG (1/4 of 100 MCG) Tab VAG PRN ×2 (09:42→15:20)
[2023-09-06] MEDS ORDERED: ePHEDrine 50 MG/ML SDV IVPUSH PRN ×2 (10:22)
[2023-09-06] MEDS ORDERED: Phenylephrine HCl In 0.9% NaCl 1 MG/10 ML Syringe IVPUSH PRN (10:22)
[2023-09-06] MEDS ORDERED: dexmedeTOMIDine HCl 200 MCG/2 ML SDV EPIDUR SCH (10:30)
[2023-09-06] MEDS: Ampicillin 1 GM in Sodium Chloride 0.9% 50 ML IV SCH (13:16)
[2023-09-06] MEDS: Butorphanol 2 MG/ML SDV IVPUSH PRN (19:24)
[2023-09-06] MEDS: Ropivacaine HCl/PF 400 MG in Premix Bag 1 BAG EPIDUR SCH (20:45)
[2023-09-06] MEDS ORDERED: fentaNYL 100 MCG/2 ML SDV ONE (20:49)
[2023-09-06] MEDS: Oxytocin/0.9 % Sodium Chloride 30 UNIT/500 ML BAG IV SCH (21:57)
[2023-09-06] MEDS ORDERED: Docusate Sodium 100 MG Cap PO PRN (22:23)
[2023-09-06] MEDS: Oxytocin/0.9 % Sodium Chloride 30 UNIT/500 ML BAG ONE (22:45)
[2023-09-06 22:50] LABS: PH,UMBILICAL ARTERIAL 7.261 (7.18-7.38); PH,UMBILICAL VENOUS 7.346 (7.25-7.45)
[2023-09-07] MEDS: Witch Hazel Medicated Pads 40/Jar TOP PRN (04:39)
[2023-09-07] MEDS: Benzocaine/Menthol 20%-0.5% Spray 78 GM Cannister TOP PRN (04:39)
[2023-09-07] MEDS: Lanolin 100% Cream 7 GM Tube TOP PRN (04:41)
[2023-09-07 06:17] LABS: HEMATOCRIT 33.7 % (37.0-47.0); HEMOGLOBIN 11.6 g/dL (12.0-16.0)
[2023-09-07] MEDS: Acetaminophen 500 MG Tab PO PRN (12:13)
[2023-09-07] MEDS: Ibuprofen 800 MG Tab PO PRN (12:13)
== END 2023-09-08 22:15 | disposition home or self-care (01) | DRG 560 ==
LOC: MW.OBCHECK 08:16 → MW.OB 08:16 → MW.OBCHECK 08:46 → MW.OB 09:25 → OBSVTOIN 21:51 → MW.OB 09-07 01:11
PROVIDERS: ADMIT Obstetrics & Gynecology; ATTEND Obstetrics & Gynecology
PROC: 10E0XZZ Delivery of Products of Conception, External Approach (ICD-10-PCS; principal; 2023-09-06)
PROC: 3E0P7VZ Introduction of Hormone into Female Reproductive, Via Natural or Artificial Opening (ICD-10-PCS; 2023-09-06)
PROC: 3E0R3BZ Introduction of Anesthetic Agent into Spinal Canal, Percutaneous Approach (ICD-10-PCS; 2023-09-06)
PROC: 00HU33Z Insertion of Infusion Device into Spinal Canal, Percutaneous Approach (ICD-10-PCS; 2023-09-06)
PROC: 10907ZC Drainage of Amniotic Fluid, Therapeutic from Products of Conception, Via Natural or Artificial Opening (ICD-10-PCS; 2023-09-06)
DX: O99.824 Streptococcus B carrier state complicating childbirth (principal); O99.02 Anemia complicating childbirth; Z88.5 Allergy status to narcotic agent; Z88.8 Allergy status to other drugs, medicaments and biological substances; Z91.040 Latex allergy status; Z37.0 Single live birth; Z3A.39 39 weeks gestation of pregnancy; D50.9 Iron deficiency anemia, unspecified
CPT/HCPCS: 36415; 59025; 59409; 59414; 82803; 85014; 85018; 85027; 86592; 86850; 86900; 86901; A9270-GY; J0290; J0595; J2590; J2795; J3010; J3490; J7120

== ENCOUNTER 2024-07-01 13:56 | Emergency (ER) | payer SELFPAY ==
[2024-07-01] MEDS ORDERED: Sodium Chloride 0.9% 10 ML Syringe FLUSH PRN (14:02)
[2024-07-01] MEDS ORDERED: Sodium Chloride 0.9% 2.5 ML Syringe FLUSH PRN (14:02)
[2024-07-01 14:13] LABS: BASOPHILS ABSOLUTE AUTO 0.07 K/uL (0.00-0.20); BASOPHILS PERCENT AUTO 0.7 % (0.0-1.0); EOSINOPHILS ABSOLUTE AUTO 0.09 K/uL (0.00-0.45); EOSINOPHILS PERCENT AUTO 0.9 % (0.0-6.0); HEMATOCRIT 38.4 % (37.0-47.0); HEMOGLOBIN 12.9 g/dL (12.0-16.0); IMMATURE GRAN ABSOLUTE AUTO 0.02 K/uL (0.00-0.05); IMMATURE GRAN PERCENT AUTO 0.2 % (0.0-0.4); LYMPHOCYTES ABSOLUTE AUTO 2.64 K/uL (1.00-4.80); LYMPHOCYTES PERCENT AUTO 25.7 % (24.0-44.0); MEAN CORPUSCULAR HEMOGLOBIN 29.1 pg (28.0-32.0); MEAN CORPUSCULAR HGB CONC 33.6 g/dL (32.0-36.0); MEAN CORPUSCULAR VOLUME 86.5 fL (83.0-99.0); MEAN PLATELET VOLUME 10.4 fL (9.4-12.3); MONOCYTES ABSOLUTE AUTO 0.33 K/uL (0.00-0.80); MONOCYTES PERCENT AUTO 3.2 % (0.0-8.0); NEUTROPHILS ABSOLUTE AUTO 7.14 K/uL (1.80-7.70); NEUTROPHILS PERCENT AUTO 69.3 % (41.0-71.0); PLATELET COUNT,PLT 349 K/uL (150-400); RED BLOOD CELL COUNT 4.44 M/uL (4.10-5.30); WHITE BLOOD CELL COUNT,WBC 10.29 K/uL (3.9-11.3)
[2024-07-01] MEDS: Ondansetron 4 MG/2 ML SDV IVPUSH ONE (14:17)
[2024-07-01] MEDS: Ketorolac 30 MG/ML SDV IVPUSH ONE (14:17)
[2024-07-01] MEDS: Sodium Chloride 0.9% 1,000 ML IV ONE (14:17)
[2024-07-01] MEDS: Alum Hydrox/Mag Hydrox/Simeth 15 ML, Lidocaine 2% 5 ML PO ONE (14:20)
[2024-07-01 14:40] LABS: A/G RATIO 1.2 (0.9-1.6); ALANINE AMINOTRANSFERASE,ALT 22 IU/L (14-63); ALBUMIN 4.1 g/dL (3.4-5.0); ALKALINE PHOSPHATASE 90 U/L (46-116); ASPARTATE AMNIOTRANSFERASE,AST 15 IU/L (15-37); BILIRUBIN TOTAL 1.3 mg/dL (0.2-1.0); BLOOD UREA NITROGEN,BUN 15 mg/dL (7.0-18.0); CALCIUM 8.9 mg/dL (8.5-10.1); CARBON DIOXIDE,CO2 24.8 mmol/L (21.0-32.0); CHLORIDE,CL 103 mmol/L (98-107); CREATININE 0.9 mg/dL (0.6-1.0); EST CRCL DRUG DOSING (CG) 74.62 mL/min; GLUCOSE RANDOM 93 mg/dL (74-106); MAGNESIUM 1.7 mg/dL (1.8-2.4); POTASSIUM,K 3.5 mmol/L (3.5-5.1); PRO B-TYPE NATRIUR PEPT,BNPPRO 58 pg/mL (0-125); PROTEIN TOTAL,TP 7.4 g/dL (6.4-8.2); SODIUM,NA 139 mmol/L (136-145); TSH ULTRASENSITIVE 0.84 uIU/mL (0.36-3.74)
[2024-07-01 14:41] LABS: ESTIMATED GFR 85 mL/min (>60)
[2024-07-01] MEDS: Sodium Chloride 0.9% 500 ML IV SCH (15:41)
== END 2024-07-01 16:36 | disposition home or self-care (01) ==
LOC: MW.ED 13:56
DX: R07.9 Chest pain, unspecified (principal); Z88.5 Allergy status to narcotic agent; Z91.040 Latex allergy status; Z88.8 Allergy status to other drugs, medicaments and biological substances; Z75.8 Other problems related to medical facilities and other health care; Z90.49 Acquired absence of other specified parts of digestive tract
CPT/HCPCS: 36415; 71045; 80053; 83735; 83880; 84443; 84484; 85025; 85379; 96361; 96374; 96375; 99285; A9270; J1885; J2405; J7030; J7040; 93010; 99284